=== PATIENT | female | born 1970 | race Caucasian/White ===

== ENCOUNTER 2018-04-13 10:05 | Emergency (ER) | payer BC ==
[2018-04-13] MEDS: ALBUTEROL 0.083% (NEB) 2.5 MG/3 ML AMP NEB (10:38)
[2018-04-13] MEDS: IPRATROPIUM (NEB) 0.5 MG/2.5 ML AMP NEB (10:38)
== END 2018-04-13 11:32 | disposition home or self-care (01) ==
LOC: FTE 10:05
DX: J45.21 Mild intermittent asthma with (acute) exacerbation (principal); E11.9 Type 2 diabetes mellitus without complications
CPT/HCPCS: 71045; 81025; 94664; 99283-25

== ENCOUNTER 2018-04-28 02:41 | Observation (INO) | payer BC ==
[2018-04-28] MEDS: LEVALBUTEROL (NEB) 1.25 MG/0.5 ML AMP INH (03:20)
[2018-04-28] MEDS: IPRATROPIUM (NEB) 0.5 MG/2.5 ML AMP INH (03:20)
[2018-04-28] MEDS: MAGNESIUM SULFATE 2 GM/50 ML 50 ML IVPB (03:30)
[2018-04-28] MEDS: METHYLPREDNISOLONE 125 MG INJ IV (03:30)
[2018-04-28] MEDS ORDERED: NACL 0.9% 3 ML SYG IV (06:00)
[2018-04-28] MEDS ORDERED: HYDROCODONE/APAP (5/325) TAB PO (06:00)
[2018-04-28] MEDS ORDERED: DEXTROSE 50% 50 ML SYRINGE IV ×2 (06:00)
[2018-04-28] MEDS ORDERED: GLUCAGON 1 MG INJ IM (06:00)
[2018-04-28] MEDS ORDERED: GLUCOSE GEL 15 GRAM TUBE PO ×2 (06:00)
[2018-04-28] MEDS ORDERED: GLUCOSE GEL 15 GRAM TUBE BUCCAL (06:00)
[2018-04-28] MEDS: ALBUTEROL/IPRATROPIUM (NEB) 3 ML AMP HHN ×2 (07:43→13:03)
[2018-04-28 07:53] LABS: ADD MAN DIFF? NO
[2018-04-28 07:56] LABS: BASOPHIL # 0.1 10^3/ul (0.0-0.1); BASOPHILS % 0.7 % (0.0-2.0); EOSINOPHILS # 0.4 10^3/ul (0.0-0.5); EOSINOPHILS % 3.3 % (0.0-7.0); HEMATOCRIT 38.9 % (37.0-47.0); HEMOGLOBIN 11.9 g/dl (12.0-16.0); LYMPHOCYTES # 0.9 10^3/ul (0.8-2.9); LYMPHOCYTES % 7.7 % (15.0-51.0); MEAN CORPUSCULAR HEMOGLOBIN 24.3 pg (29.0-33.0); MEAN CORPUSCULAR HGB CONC 30.6 g/dl (32.0-37.0); MEAN CORPUSCULAR VOLUME 79.4 fl (82.0-101.0); MONOCYTE # 0.3 10^3/ul (0.3-0.9); MONOCYTES % 2.6 % (0.0-11.0); NEUTROPHIL # 10.2 10^3/ul (1.6-7.5); NEUTROPHILS % 84.9 % (39.0-77.0); PLATELET COUNT 359 10^3/UL (140-415); RED CELL DISTRIBUTION WIDTH 14.1 % (11.5-14.5)
[2018-04-28 08:19] LABS: ANION GAP 12 (5-13); BLOOD UREA NITROGEN 9 mg/dl (7-20); CALCIUM 9.8 mg/dl (8.4-10.2); CARBON DIOXIDE 23 mmol/L (21-31); CHLORIDE 107 mmol/L (97-110); Estimated GFR > 60 mL/min (>60); GLUCOSE 220 mg/dl (70-220); POTASSIUM 3.9 mmol/L (3.5-5.1); SODIUM 142 mmol/L (135-144)
[2018-04-28] MEDS: predniSONE 20 MG TAB PO (08:23)
[2018-04-28] MEDS: INSULIN ASPART [NOVOLOG] 3 ML PEN SC ×6 (08:25→17:19)
[2018-04-28] MEDS: ENOXAPARIN 30 MG/0.3 ML SYG SC (08:35)
[2018-04-28] MEDS: SOD CHLORIDE 0.9% 100 ML (09:48)
[2018-04-28] MEDS: IOHEXOL 100 ML (09:49)
[2018-04-28] MEDS ORDERED: INSULIN GLARGINE [LANTus] (100 UNITS/ML) SYG SC (20:00)
== END 2018-04-28 19:20 | disposition home or self-care (01) ==
LOC: E/R 02:41 → 6WM 05:19
PROVIDERS: Internal Medicine
DX: J45.901 Unspecified asthma with (acute) exacerbation (principal); R06.02 Shortness of breath; E11.9 Type 2 diabetes mellitus without complications; Z79.4 Long term (current) use of insulin
CPT/HCPCS: 70491; 71045; 71275; 80048; 82962; 85025; 94640; 94644; 94664; G0378